=== PATIENT | female | born 1945 | race Caucasian/White ===

== ENCOUNTER 2021-10-07 06:32 | Day surgery (SDC) | payer MEDICARE, OTHER ==
[~2021-10-07 06:32] MED LIST: Lactated Ringers 1,000 ML IV SCH; Sodium Chloride 0.9% 10 ML Syringe FLUSH PRN; Sodium Chloride 0.9% 2.5 ML Syringe FLUSH PRN; Sodium Chloride 0.9% 20 ML SDV IV PRN
[2021-10-07] MEDS ORDERED: fentaNYL 100 MCG/2 ML SDV ONE (07:23)
[2021-10-07] MEDS ORDERED: Propofol 200 MG/20 ML SDV ONE (07:23)
== END 2021-10-07 08:58 | disposition home or self-care (01) ==
LOC: MW.SDS 06:32
PROVIDERS: ATTEND Surgery
DX: Z12.11 Encounter for screening for malignant neoplasm of colon (principal); D12.0 Benign neoplasm of cecum; D12.5 Benign neoplasm of sigmoid colon; K57.30 Diverticulosis of large intestine without perforation or abscess without bleeding; I10 Essential (primary) hypertension; E11.9 Type 2 diabetes mellitus without complications; Z79.899 Other long term (current) drug therapy; Z88.1 Allergy status to other antibiotic agents; G47.30 Sleep apnea, unspecified; Z79.84 Long term (current) use of oral hypoglycemic drugs; Z90.49 Acquired absence of other specified parts of digestive tract; Z98.890 Other specified postprocedural states
CPT/HCPCS: 45380; 82947; 88305; J2704; J3010; J7120; 00812; 99100

== ENCOUNTER 2024-12-23 10:07 | Emergency (ER) | payer MEDICARE, OTHER ==
[2024-12-23] MEDS ORDERED: Sodium Chloride 0.9% 10 ML Syringe FLUSH PRN (10:24)
[2024-12-23] MEDS ORDERED: Sodium Chloride 0.9% 2.5 ML Syringe FLUSH PRN (10:24)
[2024-12-23 10:34] LABS: BASOPHILS ABSOLUTE AUTO 0.02 K/uL (0.00-0.20); BASOPHILS PERCENT AUTO 0.2 % (0.0-1.0); EOSINOPHILS ABSOLUTE AUTO 0.00 K/uL (0.00-0.45); EOSINOPHILS PERCENT AUTO 0.0 % (0.0-6.0); IMMATURE GRAN ABSOLUTE AUTO 0.02 K/uL (0.00-0.05); IMMATURE GRAN PERCENT AUTO 0.2 % (0.0-0.4); LYMPHOCYTES ABSOLUTE AUTO 1.44 K/uL (1.00-4.80); LYMPHOCYTES PERCENT AUTO 17.5 % (24.0-44.0); MEAN PLATELET VOLUME 9.5 fL (9.4-12.3); MONOCYTES ABSOLUTE AUTO 1.04 K/uL (0.00-0.80); MONOCYTES PERCENT AUTO 12.7 % (0.0-8.0); NEUTROPHILS ABSOLUTE AUTO 5.69 K/uL (1.80-7.70); NEUTROPHILS PERCENT AUTO 69.4 % (41.0-71.0); NRBC ABSOLUTE 0.00 K/uL (0.00-0.02); NRBC PERCENT 0.0 /100WBC (0.0-0.2); PLATELET COUNT,PLT 383 K/uL (150-400); RED BLOOD CELL COUNT 5.86 M/uL (4.10-5.30); WHITE BLOOD CELL COUNT,WBC 8.21 K/uL (3.9-11.3)
[2024-12-23] MEDS: Ondansetron 4 MG/2 ML SDV IVPUSH ONE (10:50)
[2024-12-23 11:07] LABS: A/G RATIO 1.0 (0.9-1.6); ALANINE AMINOTRANSFERASE,ALT 33.0 IU/L (14-63); ASPARTATE AMNIOTRANSFERASE,AST 17.0 IU/L (15-37); BILIRUBIN TOTAL 0.8 mg/dL (0.2-1.0); BLOOD UREA NITROGEN,BUN 104.0 mg/dL (7.0-18.0); CARBON DIOXIDE,CO2 16.5 mmol/L (21.0-32.0); CHLORIDE,CL 92.0 mmol/L (98-107); CREATININE 6.0 mg/dL (0.6-1.0); EST CRCL DRUG DOSING (CG) 5.82 mL/min; GLUCOSE RANDOM 177.0 mg/dL (74-106); POTASSIUM,K 5.3 mmol/L (3.5-5.1); PRO B-TYPE NATRIUR PEPT,BNPPRO 228.0 pg/mL (0-450); PROTEIN TOTAL,TP 9.6 g/dL (6.4-8.2); SODIUM,NA 134.0 mmol/L (136-145)
[2024-12-23 11:10] LABS: ESTIMATED GFR 7.0 mL/min (>60)
[2024-12-23 13:22] LABS: LACTIC ACID 2.0 mmol/L (0.4-2.0)
[2024-12-23] MEDS: Benzocaine 20% Topical Spray UD MUCMEM ONE (14:06)
== END 2024-12-23 14:31 ==
LOC: MW.ED 10:07
DX: K56.609 Unspecified intestinal obstruction, unspecified as to partial versus complete obstruction (principal); E86.0 Dehydration; N17.9 Acute kidney failure, unspecified; I10 Essential (primary) hypertension; E11.9 Type 2 diabetes mellitus without complications; Z90.49 Acquired absence of other specified parts of digestive tract; Z88.0 Allergy status to penicillin; Z79.899 Other long term (current) drug therapy; Z79.84 Long term (current) use of oral hypoglycemic drugs; Z90.710 Acquired absence of both cervix and uterus
CPT/HCPCS: 36415; 43752; 70450; 71045; 71250; 74176; 80053; 83605; 83735; 83880; 84484; 85025; 93005; 96361; 96374; 99285; J2405; J7030; 93010; 99284